=== PATIENT | male | born 1975 | race Caucasian/White ===

== ENCOUNTER 2018-10-13 18:15 | Emergency (ER) | payer OTHER ==
[~2018-10-13] VITALS: Ht 167.6 cm; Wt 78.0 kg
[2018-10-13] MEDS ORDERED: KETOROLAC 60MG/2ML VIAL IM ONE (20:15)
[2018-10-13 20:43] VITALS: BP 120/66
== END 2018-10-13 20:45 | disposition home or self-care (01) ==
LOC: ER 18:15
DX: S40.012A Contusion of left shoulder, initial encounter (principal); S20.20XA Contusion of thorax, unspecified, initial encounter; W01.0XXA Fall on same level from slipping, tripping and stumbling without subsequent striking against object, initial encounter; Y93.89 Activity, other specified; Y92.89 Other specified places as the place of occurrence of the external cause; Y99.8 Other external cause status
CPT/HCPCS: 96372; 99283; J1885

== ENCOUNTER 2024-01-11 09:11 | Emergency (ER) | payer SELFPAY ==
[~2024-01-11] VITALS: Ht 172.7 cm; Wt 90.0 kg
[2024-01-11 09:21] VITALS: O2SAT 99
[2024-01-11] MEDS ORDERED: AMOX1TAB16 MT (10:25)
[2024-01-11] MEDS ORDERED: IBUP-2029 MT (10:25)
[2024-01-11 10:35] VITALS: BP 148/98; PULSE 87; RESP 18; TEMP 98.6
== END 2024-01-11 10:37 | disposition home or self-care (01) ==
LOC: ER 10:25
DX: K08.89 Other specified disorders of teeth and supporting structures (principal)
CPT/HCPCS: 99283